=== PATIENT | male | born 1955 | race Hispanic/Latino ===

== ENCOUNTER → 2019-04-06 | Outpatient (CLI) | payer MEDICAID ==
[~2019-04-06] MED LIST: ALPR2TAB2 PO; ASPI-555 PO; ATOR20TA65 PO; CARV6.25 PO; ESCI5SOL4 PO; FENO145T37 PO; FURO20TA4 PO; HYDR-3422 PO; HYDR-4068 PO; INSU100I13 SQ; INSU100V33 SQ; LEVO50TA11 PO; LINA1TAB5 PO; LOSA50TA64 PO; OLAN5TAB27 PO; POTA20TA82 PO; PREG75 PO
== END | disposition home or self-care (01) ==
LOC: SLP 20:03
PROVIDERS: ATTEND Family Medicine
DX: R06.83 Snoring (principal); J44.9 Chronic obstructive pulmonary disease, unspecified
CPT/HCPCS: 95810; 95811

== ENCOUNTER 2019-11-19 06:18 | Day surgery (SDC) | payer MEDICAID ==
[~2019-11-19] VITALS: Ht 167.6 cm; Wt 127.0 kg
[2019-11-19] MEDS ORDERED: SODIUM CHLORIDE 0.9% 1000ML 1,000 ML IV ONE (06:28)
[2019-11-19 09:16] VITALS: BP 202/107
[2019-11-19] MEDS ORDERED: GLYB1TAB30 PO (09:55)
[2019-11-19] MEDS ORDERED: BUDE10.2 IH (09:55)
[2019-11-19] MEDS ORDERED: ASPI-555 PO (09:55)
[2019-11-19] MEDS ORDERED: ATOR40TA71 PO (09:55)
[2019-11-19] MEDS ORDERED: LOPE2CAP PO (09:55)
[2019-11-19] MEDS ORDERED: LURA40TA PO (09:55)
[2019-11-19] MEDS ORDERED: LIRA0.6P SQ (09:55)
[2019-11-19] MEDS ORDERED: GABA-531 PO (09:55)
[2019-11-19] MEDS ORDERED: CARV6.25 PO (09:55)
[2019-11-19] MEDS ORDERED: DOCU-272 PO (09:55)
[2019-11-19] MEDS ORDERED: LEVO50TA11 PO (09:55)
[2019-11-19] MEDS ORDERED: LISI-617 PO (09:55)
[2019-11-19] MEDS ORDERED: ALBU8.5H8 IH (09:55)
[2019-11-19] MEDS ORDERED: ALBU6.7H9 IH (09:55)
[2019-11-19] MEDS ORDERED: POTA20TA82 PO (09:55)
[2019-11-19] MEDS ORDERED: ESCI10TA PO (09:55)
[2019-11-19] MEDS ORDERED: VENL75TA63 PO (09:55)
[2019-11-19] MEDS ORDERED: INSU100C14 SQ ×2 (09:55)
[2019-11-19] MEDS ORDERED: BUSP15TA3 PO (09:55)
[2019-11-19] MEDS ORDERED: LATANOPROST (09:55)
[2019-11-19] MEDS ORDERED: PROPOFOL 10 MG/ML 20ML VIAL IV ONE (10:45)
[2019-11-19 11:00] VITALS: BP 147/83
[2019-11-19 11:05] VITALS: BP 137/87
[2019-11-19 11:30] VITALS: BP 160/88
== END 2019-11-19 11:36 | disposition home or self-care (01) ==
LOC: DAH 06:18 → ENDO 06:18
PROVIDERS: ATTEND Internal Medicine Gastroenterology
DX: K92.1 Melena (principal); K63.5 Polyp of colon; K57.30 Diverticulosis of large intestine without perforation or abscess without bleeding; K64.8 Other hemorrhoids; E11.9 Type 2 diabetes mellitus without complications; F41.9 Anxiety disorder, unspecified; J44.9 Chronic obstructive pulmonary disease, unspecified; I25.10 Atherosclerotic heart disease of native coronary artery without angina pectoris; G47.30 Sleep apnea, unspecified; E66.9 Obesity, unspecified; Z68.42 Body mass index [BMI] 45.0-49.9, adult; Z79.899 Other long term (current) drug therapy; Z98.890 Other specified postprocedural states; Z80.0 Family history of malignant neoplasm of digestive organs; Z72.89 Other problems related to lifestyle
CPT/HCPCS: 45385; 82948 ×2; A4215 ×2; A4221; A4222; A4223; A4606; A4663; J2704; J7030